=== PATIENT | female | born 1965 | race Caucasian/White ===

== ENCOUNTER 2016-12-09 11:40 | Inpatient (IN) | payer OTHER ==
--- NOTE | ~2016-12-09 | CT2 ---
[facility] A Service of [facility] & [facility] RADIOLOGY TEXT RESULTS PATIENT: DANIELA VILLA LOCATION: [facility] 242-01 : [birth year] UNIT #: [id number] AGE: [address]: Era Gardiner MD SEX: F ORDER DR: [id number] [place] [id number] [facility]. [place], [place] [address] [id number] E MR#: [id number] Acc #: [id number] NAME: DANIELA VILLA : 1965 SEX: F STUDY DATE/TIME: 12/09/2016 15:03 UNIT: [facility] ROOM: STUDY DESCRIPTION: CT Abd and Pelv W Cont Attending Physician: Ranulfo Dennison M.D. Ordering Physician: Ranulfo Dennison M.D. Primary Care Physician: Saadia Galarza M.D. MEDICAL IMAGING REPORT This report is preliminary unless electronic signature is present EXAM CT abdomen and pelvis with contrast INDICATIONS Elevated liver enzyme levels at physician's office today. Jaundice for the past month. PROCEDURE Contrast-enhanced CT of the abdomen and pelvis. This CT exam was performed with one or more of the following radiation dose reduction techniques: automatic exposure control, adjustment of mA and/or kV according to patient size, and iterative reconstruction. COMPARISON 12/01/2011 FINDINGS Abdomen with contrast: Band-like opacity in the left lower lobe is similar to the prior favored to represent scarring or chronic atelectasis. Somewhat heterogeneous enhancement pattern of the liver. No discrete mass is seen. The liver measures 17.4 cm in length and is not frankly cirrhotic. Gallbladder is moderately distended and there is mild to moderate pericholecystic fluid. No radiodense gallstones are seen. Common duct measures approximately 6 mm. There is no radiodense obstructing stone identified on this study. There is a nonspecific somewhat rounded very subtle slightly high attenuating 5 mm focus in the region of the ampulla. The pancreas is unremarkable. Spleen, kidneys, adrenal glands are unremarkable. The bowel loops are nondilated. No discrete pancreatic mass is seen. Pelvis with contrast: Previous hysterectomy. No pelvic mass or fluid. STS. [facility] A Service of [facility] & [facility] RADIOLOGY TEXT RESULTS PATIENT: DANIELA VILLA LOCATION: [facility] 242-01 : [birth year] UNIT #: [id number] AGE: [address]: Era Gardiner MD SEX: F ORDER DR: No aggressive appearing bone lesion. IMPRESSION 1. Heterogeneous enhancement pattern of the liver as well as some pericholecystic fluid. This could be seen in the setting of active hepatitis. 2. Common duct is upper limits of normal to minimally prominent for the patient's age. No definite obstructing radiodense stone is seen. 3. There is a subtle 5 mm round focus in the region of the ampulla. It is not clear whether this simply represents the ampulla or possibly a mass or, slightly high attenuating stone. This finding would be better characterized with MRCP or ERCP if deemed clinically appropriate. 4. Given the pericholecystic fluid, acute cholecystitis is not excluded but no discrete radiodense stones are seen in the gallbladder itself. Dictated by... Brent Akhtar M.D. THIS IS AN ELECTRONICALLY VERIFIED REPORT Brent Akhtar M.D. at 12/09/2016 10:23 PM EED/basia TD: 12/09/2016 17:48 JOB #: [id number] MEDICAL IMAGING REPORT Page 1 of 1 COPY
--- NOTE | ~2016-12-09 | MR145 ---
[facility] A Service of [facility] & [facility] RADIOLOGY TEXT RESULTS PATIENT: DANIELA VILLA LOCATION: [facility] 242-01 : [birth year] UNIT #: [id number] AGE: [address]: Ankit Jesus MD SEX: F ORDER DR: [id number] [facility] [address] [place], [place] [address] [id number] I MR#: [id number] Acc #: [id number] NAME: DANIELA VILLA : 1965 SEX: F STUDY DATE/TIME: 12/10/2016 20:18 UNIT: [facility] ROOM: 242 STUDY DESCRIPTION: MR MRCP WWo Contrast Attending Physician: Ankit Jesus M.D. Ordering Physician: Ankit Jesus M.D. Primary Care Physician: Saadia Galarza M.D. MRI CENTER REPORT This report is preliminary unless electronic signature is present. EXAM MRI abdomen and MRCP without and with IV gadolinium. HISTORY Elevated liver enzymes yesterday. Jaundice for 2 weeks. Periampullary mass or stone on CT abdomen yesterday. FINDINGS MRI abdomen was performed without and with IV gadolinium and MRCP was performed. There is a very small right pleural effusion and there is mild right perihepatic ascites. Moderate gallbladder distension and small amount of pericholecystic fluid. Mild extrahepatic biliary ductal dilatation with the common hepatic and common bile duct each measuring 9 mm in diameter. No intraductal filling defects. Normal caliber pancreatic duct. No correlate to the small hyperdensity at the level of the ampulla noted on CT yesterday. No hepatic mass. The spleen, pancreas, kidneys, and adrenal glands are normal. IMPRESSION 1. Small amount of perihepatic ascites and pericholecystic fluid and mild gallbladder distension. No gallstones. 2. Mild extrahepatic biliary ductal dilatation. 3. No intraductal filling defects were identified. No MRI correlate to the small hyperdensity near the ampulla noted on CT yesterday. 4. The pancreas is unremarkable. 5. No hepatic mass. Dictated by... Daniel Osorio M.D. STS[facility] A Service of [facility] & [facility] RADIOLOGY TEXT RESULTS PATIENT: DANIELA VILLA LOCATION: [place] [address]- : [birth year] UNIT #: [id number] AGE: [address]: Ankit Jesus MD SEX: F ORDER DR: THIS IS AN ELECTRONICALLY VERIFIED REPORT Daniel Osorio M.D. at 12/11/2016 11:46 AM FRANKIE/ervin TD: 12/11/2016 00:07 JOB #: [id number] MRI CENTER REPORT Page 1 of 1 COPY
--- NOTE | ~2016-12-09 | CO ---
Unit #: [id number] #: [id number] Patient: DANIELA SWAN [id number] [address] [address] [id number] I MR#: [id number] NAME: DANIELA SWAN ROOM: 242 Age: 51 Sex: F Admission Date: 12/09/2016 : 1965 Attending Physician: Ankit Jesus M.D. Primary Care Physician: Saadia Galarza M.D. Consultation Date: 12/09/2016 CONSULTATION REPORT REASON FOR CONSULTATION Acute hepatitis and liver failure. HISTORY OF PRESENT ILLNESS Ms. Swan is a 51-year-old white female. The patient is quite frail and she was brought in by her daughter because of deep jaundice and mental confusion, as well as feeling generally weak. The patient is deeply jaundiced and her admission bilirubin was 21.8. She apparently was asked to come to the emergency room by Dr. Galarza's office after her labs drawn a day earlier showed markedly abnormal liver function studies. The patient does have a history of drug use, including snorting. She states she has never used IV drugs in the past. Her latest symptoms seem to be marked anorexia, profound weight loss and deep jaundice. There is minimal abdominal pain as well. PAST MEDICAL HISTORY 1. History of hypothyroidism. 2. Anxiety and depression. 3. Seizure disorder. PAST SURGICAL HISTORY 1. Hysterectomy. 2. Appendectomy. SOCIAL HISTORY The patient smokes a pack of cigarettes daily. She does not drink alcohol. She does use marijuana and also snorts methamphetamine and other medications. ALLERGIES No known drug allergies. HOME MEDICATIONS 1. Tylenol. 2. Desyrel. 3. Seroquel. 4. Phenergan. 5. Meloxicam. 6. Meclizine. 7. Claritin. 8. Synthroid. 9. Keppra. 10. Neurontin. 11. Duloxetine. Unit #: [id number] #: [id number] Patient: DANIELA SWAN 12. Cyanocobalamin. 13. Albenza. She denies taking an overdose of Tylenol. REVIEW OF SYSTEMS Detailed review of organ systems is significant for profound weight loss and deep jaundice and marked anorexia. She has recently had a few falls. There is no history of fever, chills, rigors. No history of headache, seizure, chest pain, syncope. No history of cough, expectoration, hemoptysis. No history of dysuria, hematuria or pyuria. No history of focal seizures. There is a history of generalized seizures. No history of GI bleed. PHYSICAL EXAMINATION GENERAL: She appears awake and alert, a little bit lethargic. VITALS: Temperature 97.9, pulse 75 per minute and regular, respiratory rate 16, blood pressure 104/59. She weighs 125 pounds. Her baseline weight has been about the same last year and way back her weight was about 160 pounds a couple of years ago. She has lost about 40 pounds over 2 years. HEENT: She has deep jaundice, mild pallor, no lymphadenopathy or peripheral edema. LUNGS: Normal breath sounds. Good air entry. HEART: Normal heart sounds. No bruits auscultated. ABDOMEN: Soft and nontender. Liver and spleen are not palpable. Bowel sounds normal. EXTREMITIES: NEUROLOGIC: DIAGNOSTIC STUDIES LABORATORY: INR 1.4. Serum chemistry shows total bilirubin 21, most of which is direct. Peak AST and ALT are 1123 and 818. Alkaline phosphatase 258. Ammonia level on admission was 57. Potassium 3.0, BUN and creatinine normal. Glucose is also normal. CBC is completely normal. The patient's hepatitis profile is pending. (1) profile is also pending. The patient's hepatitis profile is pending. ASSESSMENT/PLAN Patient with acute hepatitis. The differential diagnosis includes autoimmune hepatitis, as well as hepatitis B and C. According to the patient's daughter, she had hepatitis serology checked in August earlier this year and that was normal. Although her CAT scan raises some questions, I am quite confident overall issue is acute hepatitis and there is no element of cholestasis from obstruction or jaundice. Will, therefore, obtain AI, (2) antibody, daily PT/INR as well as alpha fetoprotein. In addition, the patient's ammonia level is elevated and lactulose therapy is being instituted. The above plan was discussed with the patient's daughter and I explained to her the prognosis at the moment is guarded. Thank you for asking me to see this pleasant woman. I appreciate the consult. Dictated by... Unit #: [id number] #: [id number] Patient: DANIELA SWAN Ho Jean Baptiste M.D. AK/gz TD: 12/13/2016 08:20 JOB #: [id number] CC: Tessa Blanca M.D. Ashok Kapur, M.D. CONSULTATION REPORT Page 1 of 1 X Ho Jean Baptiste MD CONSULTATION REPORT
--- NOTE | ~2016-12-09 | HP ---
Unit #: [id number] #: [id number] Patient: DANIELA VILLA [id number] [facility]. [place], [place] [address] [id number] MR#: [id number] NAME: DANIELA VILLA ROOM: Age: 51 Sex: F Admission Date: 12/09/2016 : 1965 Attending Physician: Ranulfo Dennison M.D. Primary Care Physician: Saadia Galarza M.D. HISTORY AND PHYSICAL CHIEF COMPLAINT Abnormal labs. HISTORY OF PRESENT ILLNESS The patient is a 51-year-old female with past medical history of hypothyroidism, anxiety, depression, seizure disorder who presented to the emergency department for evaluation of the above. The patient states that she noticed her skin being yellow about a week ago. She saw her primary care physician yesterday. Labs were done. She was told to go to the emergency department due to abnormal labs today. The patient states that she has not had any fever. No cough. She has had nausea but no abdominal pain. No chest pain. She has noticed that her stools have been "orange" for the past three weeks. She is typically constipated. Her last bowel movement was yesterday. She denies any urinary symptoms. She has been generally weak. In the emergency department, laboratory is notable for AST and ALT of 1123 and 818 respectively, alkaline phosphatase was 258, total bilirubin 21.8 with 13.9 direct and 7.[address] of the abdomen and pelvis was done. It showed findings suggestive of active hepatitis and possible mass versus stone in the region of the ampulla. She is being admitted to [facility] for evaluation and further treatment. Also of note, ammonia level was 57. Potassium 3. She was given 45 mL of lactulose and 60 mEq of potassium in the emergency department. PAST MEDICAL HISTORY 1. Admission to [facility], January 15 through January 19, 2016, for seizure. She was discharged home on Keppra. 2. Seizure disorder, followed by Dr. Lemus. 3. Anxiety and depression. 4. Hypothyroidism. PAST SURGICAL HISTORY 1. Hysterectomy. 2. Appendectomy. 3. Colonoscopy, May 27, 2008, showed small internal hemorrhoids. SOCIAL HISTORY The patient smokes a pack of cigarettes daily. She reports marijuana use. FAMILY HISTORY Notable for there being no family history of liver disease. Unit #: [id number] #: [id number] Patient: DANIELA VILLA ALLERGIES No known allergies. HOME MEDICATIONS 1. Cyanocobalamin weekly. 2. Duloxetine 60 mg daily. 3. Neurontin 100 mg twice daily p.r.n. 800 mg t.i.d. 4. Keppra 500 mg twice daily. 5. Synthroid 100 mcg daily. 6. Claritin 10 mg daily. 7. Meclizine 25 mg q.8 hours p.r.n. 8. Meloxicam 15 mg daily. 9. Phenergan 25 mg q.6 hours p.r.n. 10. Seroquel 50 mg at bedtime. 11. Desyrel 150 mg at bedtime. 12. Tylenol No. 3 at bedtime p.r.n. 13. Vitamin D 50,000 units weekly. 14. Albenza is also listed but this is an old medication. REVIEW OF SYSTEMS A complete review of systems is negative except as indicated in the HPI. The patient's daughter is at bedside and states that the patient has been somewhat "disoriented" over the past couple of weeks. She has been increasingly generally weak. She has had a few falls. She has never been told she had hepatitis. She denies IV drug use. She denies heavy alcohol use. DIAGNOSTIC STUDIES LABORATORY: Ammonia level is 57. INR is 1.4. Blood alcohol level is less than 5. Urine tox screen is positive for amphetamine, marijuana, tricyclics. Comprehensive metabolic panel notable for potassium of 3. AST and ALT are 1123 and 818 respectively, alkaline phosphatase is 258, total bilirubin is 21.8 with 13.9 direct and 7.9 indirect, albumin is 2.6. Complete blood count is essentially normal. IMAGING: CT of the abdomen and pelvis shows findings suggestive of active hepatitis. There is also a 5 mm focus in the region of the ampulla concerning for possible mass versus stone. PHYSICAL EXAMINATION VITAL SIGNS: Temperature is 97.6, pulse 77, respirations 16, blood pressure 110/76, oxygen saturation is 98% on room air. GENERAL: The patient is a female who is awake and alert. HEENT: The head is atraumatic. Sclerae are icteric. Mucous membranes are moist. NECK: Supple. Trachea is midline. CARDIOVASCULAR: Regular rate and rhythm. LUNGS: Clear to auscultation bilaterally with no increased work of breathing. ABDOMEN: Soft, nontender with bowel sounds present in all four quadrants. EXTREMITIES: Nontender with no pedal edema. NEUROLOGIC: The patient is awake and alert. She is oriented x3. She follows commands. PSYCHIATRIC: Mood and affect are normal. The patient is cooperative. SKIN: The skin demonstrates jaundice. ASSESSMENT The patient is a 51-year-old female with: Unit #: [id number] #: [id number] Patient: DANIELA VILLA 1. Hepatic encephalopathy with an ammonia level of 57. The patient received 45 mL of lactulose in the emergency department. 2. Acute hepatitis: The patient states that she had a hepatitis panel about a year ago as part of a sexually transmitted disease evaluation. Also of note, the patient is on several medications that may cause hepatitis including duloxetine, Seroquel, trazodone. CT of abdomen and pelvis shows a 5 mm focus in the region of the ampulla concerning for mass versus stone. ERCP or MRCP is recommended. 3. Hypokalemia: The patient received 60 mEq of potassium in the emergency department. 4. Hypothyroidism. 5. Anxiety, depression. 6. Seizure disorder. 7. Tobacco abuse. 8. Coagulopathy with an INR of 1.4. PLAN 1. Admit to med/surg. 2. Healthy heart diet if passes bedside swallow. 3. NPO after midnight for possible procedure. 4. Lactulose 30 mL q.6 hours. 5. Neuro checks q.4 hours. 6. Bedrest. 7. Fall precautions. 8. Hepatitis panel. 9. Consult Dr. Jean Baptiste regarding acute hepatitis and need for ERCP. 10. Check magnesium level. 11. Potassium/magnesium protocol. 12. TSH. 13. Repeat labs in the morning including INR, magnesium, and ammonia levels. 14. P.r.n. Liliana. 15. SCDs for deep venous thrombosis prophylaxis. Dictated by Era Gardiner M.D. Shannon TD: 12/09/2016 17:33 JOB #: [id number] HISTORY AND PHYSICAL Page 1 of 1 X Era Gardiner MD HISTORY AND PHYSICAL
[~2016-12-09 11:40] MED LIST: ALPRAZOLAM PO; AMOXIL500 MG PO; ATARAX; ATARAX PO; CELEXA; CELEXA PO; DULOXETINE HCL60 MG PO; FLEXERIL10 M1 PO; FLEXERIL10 MG PO; KEPPRA500 M1 PO; KLONOPIN; LEXAPRO PO; NEURONTIN800 MG PO; NICOTINE TRANSD21 MG EXT; NORCO1 TAB 10/3 PO; PERCOCET 5-3251 TAB PO; PHENERGAN25 MG PO; SEROQUEL PO; SYNTHROID PO; SYNTHROID0.05 MG; SYNTHROID0.1 MG PO; TRAZODONE HCL300 MG PO; TYLENOL325 M1 PO; VOLTAREN75 MG PO; XANAX2 MG PO; ZOCOR PO; ZOVIRAX15 GM TOP; [UNRECOGNIZED DRUG - OTHER]
[2016-12-09] MEDS ORDERED: ALBENZA200 MG PO (13:33)
[2016-12-09] MEDS ORDERED: CYANOCOBAL1000 MCG/M IM (13:34)
[2016-12-09] MEDS ORDERED: DULOXETINE HCL60 M1 PO (13:35)
[2016-12-09] MEDS ORDERED: NEURONTIN100 MG PO (13:35)
[2016-12-09] MEDS ORDERED: NEURONTIN800 MG PO (13:36)
[2016-12-09] MEDS ORDERED: CLARITIN10 M3 PO (13:36)
[2016-12-09] MEDS ORDERED: KEPPRA500 M2 PO (13:36)
[2016-12-09] MEDS ORDERED: SYNTHROID PO (13:36)
[2016-12-09] MEDS ORDERED: ANTIVERT PO (13:37)
[2016-12-09] MEDS ORDERED: SEROQUEL PO (13:38)
[2016-12-09] MEDS ORDERED: MOBIC PO (13:38)
[2016-12-09] MEDS ORDERED: PHENERGAN PO (13:38)
[2016-12-09] MEDS ORDERED: TYLENOL #3 PO (13:39)
[2016-12-09] MEDS ORDERED: DESYREL150 M1 PO (13:39)
[2016-12-09] MEDS ORDERED: VITAMIN D250000 UNIT PO (13:40)
[2016-12-09 13:43] LABS: INR 1.4; PARTIAL THROMBOPLASTIN TIME 35.6 SECONDS (23.5-31.3); PROTHROMBIN TIME (PATIENT) 14.6 SECONDS (9.6-11.5)
[2016-12-09 14:16] LABS: AMPHETAMINE POS (NEG); BARBITURATES NEG (NEG); BENZODIAZEPINES NEG (NEG); COCAINE NEG (NEG); MARIJUANA POS (NEG); OPIATES NEG (NEG); TRICYCLIC ANTIDEPRESSANTS POS (NEG); U METHADONE NEG (NEG)
[2016-12-09 14:24] LABS: ALBUMIN SERUM 2.6 g/dL (3.5-5.0); BILIRUBIN,TOTAL 21.8 mg/dL (0.2-2.0); BUN/CREATININE RATIO 18.33; CALCIUM SERUM 8.6 mg/dL (8.4-10.2); CREATININE SERUM 0.6 mg/dL (0.6-1.4); GLOM FILT RATE Estimated 105.5 mL/min (>60); PROTEIN TOTAL SERUM 6.3 g/dL (6.0-8.3)
[2016-12-09 14:26] LABS: BILIRUBIN, DIRECT 13.9 mg/dL (0.0-0.2); BILIRUBIN,INDIRECT 7.9 mg/dL (0.0-0.9)
[2016-12-09 14:34] LABS: BASOPHIL# 0.1 X10e3 (0-0.3); BASOPHIL% 1.9 % (0-2.5); EOSINOPHIL# 0.3 X10e3 (0-0.7); EOSINOPHIL% 5.7 % (0.0-7.0); HEMATOCRIT 43.3 % (35.0-45.0); HEMOGLOBIN 14.3 gm/dL (12.0-16.0); LYMPHOCYTE# 1.7 X10e3 (1.0-3.5); LYMPHOCYTE% 28.3 % (17.0-45.0); MEAN CELL VOLUME 91.6 FL (83-96); MEAN CORPUSCULAR HEMOGLOBIN 30.2 PG (28-34); MEAN PLATELET VOLUME 8.9 FL (6.5-11.5); MONOCYTE# 0.7 X10e3 (0-1.0); MONOCYTE% 12.8 % (3.0-12.0); NEUTROPHIL% 51.3 % (40-75); PLATELET COUNT 201 X10e3 (140-420); RED BLOOD COUNT 4.73 X10e (3.90-5.30); RED CELL DISTRIBUTION WIDTH 20.6 % (11.0-15.5); WHITE BLOOD COUNT 5.9 X10e3 (4.0-10.5)
[2016-12-09 15:00] LABS: DIFF IND NO
[2016-12-10 06:24] LABS: INR 1.3; PROTHROMBIN TIME (PATIENT) 14.3 SECONDS (9.6-11.5)
[2016-12-10 06:28] LABS: HEMATOCRIT 37.8 % (35.0-45.0); HEMOGLOBIN 12.7 gm/dL (12.0-16.0); MEAN CELL VOLUME 91.2 FL (83-96); MEAN CORPUSCULAR HEMOGLOBIN 30.6 PG (28-34); MEAN CORPUSCULAR HGB CONC 33.6 g/dL (30-36); MEAN PLATELET VOLUME 8.8 FL (6.5-11.5); RED BLOOD COUNT 4.14 X10e (3.90-5.30); RED CELL DISTRIBUTION WIDTH 20.9 % (11.0-15.5); WHITE BLOOD COUNT 6.6 X10e3 (4.0-10.5)
[2016-12-10 07:24] LABS: ALBUMIN SERUM 2.4 g/dL (3.5-5.0); BUN/CREATININE RATIO 18.33; CALCIUM SERUM 8.3 mg/dL (8.4-10.2); CREATININE SERUM 0.6 mg/dL (0.6-1.4); GLOM FILT RATE Estimated 105.5 mL/min (>60); MAGNESIUM 1.9 mg/dL (1.6-3.0); PROTEIN TOTAL SERUM 5.8 g/dL (6.0-8.3)
[2016-12-10 07:26] LABS: BILIRUBIN,TOTAL 18.7 mg/dL (0.2-2.0)
[2016-12-11 06:25] LABS: HEMATOCRIT 40.2 % (35.0-45.0); HEMOGLOBIN 13.4 gm/dL (12.0-16.0); MEAN CELL VOLUME 91.4 FL (83-96); MEAN CORPUSCULAR HEMOGLOBIN 30.4 PG (28-34); MEAN CORPUSCULAR HGB CONC 33.3 g/dL (30-36); MEAN PLATELET VOLUME 8.8 FL (6.5-11.5); RED BLOOD COUNT 4.4 X10e (3.90-5.30); WHITE BLOOD COUNT 6.4 X10e3 (4.0-10.5)
[2016-12-11 07:05] LABS: ALBUMIN SERUM 2.4 g/dL (3.5-5.0); BILIRUBIN,TOTAL 19.9 mg/dL (0.2-2.0); BUN/CREATININE RATIO 14.28; CALCIUM SERUM 8.5 mg/dL (8.4-10.2); CREATININE SERUM 0.7 mg/dL (0.6-1.4); GLOM FILT RATE Estimated 100.3 mL/min (>60); MAGNESIUM 1.8 mg/dL (1.6-3.0); POTASSIUM 3.7 mmol/L (3.5-5.1); PROTEIN TOTAL SERUM 5.9 g/dL (6.0-8.3)
[2016-12-11] MEDS ORDERED: LACTULOSE10 GM/15 M PO (14:53)
[2016-12-13 16:12] LABS: HA AB IGM (HEPPAN) Nonreactive (()); HB CORE AB IGM (HEPPAN) Reactive (Nonreactive); HB S AG (HEPPAN) Reactive (Nonreactive); HEP C AB (HEPPAN) Nonreactive (Nonreactive); HEP C AB SIGNAL TO CUTOFF 0.03 ratio (<1.00)
[2016-12-15 14:07] LABS: ANA SCREEN Negative (Negative)
[2016-12-21] MEDS ORDERED: CYMBALTA (09:27)
[2016-12-21] MEDS ORDERED: DESYREL150 M1 PO (09:27)
== END 2016-12-11 15:08 | disposition home or self-care (01) | DRG 441 ==
LOC: CED 11:40 → CEDOF 16:55 → CED 17:08 → CEDOF 17:08 → C2A 17:08 → CEDOF 18:22 → C2A 12-10 07:14
PROVIDERS: Emergency Medicine; Family Medicine; Internal Medicine Gastroenterology
DX: K72.90 Hepatic failure, unspecified without coma (principal); K83.1 Obstruction of bile duct; D68.9 Coagulation defect, unspecified; E87.6 Hypokalemia; E03.9 Hypothyroidism, unspecified; F41.9 Anxiety disorder, unspecified; F32.9 Major depressive disorder, single episode, unspecified; G40.909 Epilepsy, unspecified, not intractable, without status epilepticus; Z90.710 Acquired absence of both cervix and uterus; Z90.49 Acquired absence of other specified parts of digestive tract; F17.210 Nicotine dependence, cigarettes, uncomplicated; Z71.6 Tobacco abuse counseling; F15.10 Other stimulant abuse, uncomplicated
CPT/HCPCS: 36415; 74177; 74183; 80048; 80053; 80074; 80076; 80307; 82105; 82140; 83516; 83735; 84439; 84443; 85025; 85027; 85610; 85730; 86038; 86039; 99285; A9577; G0480; J3475; Q9967

== ENCOUNTER → 2016-12-21 | Outpatient (CLI) | payer OTHER ==
[~2016-12-21] MED LIST changes: +ALBENZA200 MG PO; +ANTIVERT PO; +CLARITIN10 M3 PO; +CYANOCOBAL1000 MCG/M IM; +CYMBALTA; +DESYREL150 M1 PO; +DULOXETINE HCL60 M1 PO; +KEPPRA500 M2 PO; +LACTULOSE10 GM/15 M PO; +MOBIC PO; +NEURONTIN100 MG PO; +PHENERGAN PO; +TYLENOL #3 PO; +VITAMIN D250000 UNIT PO
--- NOTE | ~2016-12-21 | CT134 ---
[facility] A Service of [facility] & [facility] RADIOLOGY TEXT RESULTS PATIENT: DANIELA VILLA LOCATION: [facility]IV[facility] : [birth year] UNIT #: [id number] AGE: [address]: Ho Jean Baptiste MD SEX: F ORDER DR: [id number] [facility] [address] [place], [place] [address] [id number] O MR#: [id number] Acc #: [id number] NAME: DANIELA VILLA : 1965 SEX: F STUDY DATE/TIME: 12/21/2016 10:53 [facility]: STUDY DESCRIPTION: CT Guide Attending Physician: Ho Jean Baptiste M.D. Referring Physician: Ho Jean Baptiste M.D. Ordering Physician: Ho Jean Baptiste M.D. Primary Care Physician: Saadia Galarza M.D. MEDICAL IMAGING REPORT This report is preliminary unless electronic signature is present EXAM CT-guided liver biopsy. INDICATIONS Abnormal elevated liver function tests and jaundice. PROCEDURE The risks, benefits, and alternatives to the procedure were explained to the patient, and signed, informed consent was obtained. She was placed supine on the CT scanner gantry. Preliminary CT scan was performed through the region of interest. An appropriate site overlying the patient's right hepatic lobe was selected. Overlying skin was marked. Patient was prepped and draped in usual sterile fashion. Time-out was performed as per protocol. Skin and subcutaneous tissues were anesthetized with buffered lidocaine. Anesthesia needle was left in place. Repeat CT scan confirmed appropriate trajectory of the needle and I subsequently exchanged for a 17-gauge coaxial needle, which was advanced in the right hepatic lobe. Final CT scan confirmed appropriate position of the needle. At this point, two 3 cm core samples were obtained using an 18-gauge BioPince biopsy gun. Needle was then removed and manual pressure was applied until hemostasis was obtained. Patient tolerated the procedure well and there were no complications. Moderate sedation was provided to the patient. I monitored the IVR nurse who monitored the patient's vital signs for a total of 9 minutes face to face time. This CT exam was performed with one or more of the following radiation dose reduction techniques: automatic exposure control, adjustment of mA and/or kV according to patient size, and iterative reconstruction. IMPRESSION Technically successful CT-guided liver biopsy as noted above. Dictated by... [facility] A Service of [facility] RADIOLOGY TEXT RESULTS PATIENT: DANIELA VILLA LOCATION: [facility] #: [id number] : [birth year] UNIT #: [id number] AGE: [address]: Ho Jean Baptiste MD SEX: F ORDER DR: Rebecca Botello M.D. THIS IS AN ELECTRONICALLY VERIFIED REPORT Rebecca Botello M.D. at 12/24/2016 3:25 PM AFF/pc TD: 12/24/2016 08:14 JOB #: [id number] MEDICAL IMAGING REPORT Page 1 of 1 COPY
--- NOTE | ~2016-12-21 | XA60 ---
[facility] A Service of [facility] & [facility] RADIOLOGY TEXT RESULTS PATIENT: DANIELA VILLA LOCATION: [facility] : [birth year] UNIT #: [id number] AGE: [address]: Ho Jean Baptiste MD SEX: F ORDER DR: [id number] [facility] [address] [place], [place] [address] [id number] O MR#: [id number] #: [id number] NAME: DANIELA VILLA : 1965 SEX: F STUDY DATE/TIME: 12/21/2016 10:53 UNIT: [facility] ROOM: STUDY DESCRIPTION: XA BX Perc Liver Attending Physician: Ho Jean Baptiste M.D. Referring Physician: Ho Jean Baptiste M.D. Ordering Physician: Ho Jean Baptiste M.D. Primary Care Physician: Saadia Galarza M.D. MEDICAL IMAGING REPORT This report is preliminary unless electronic signature is present EXAM Liver biopsy. INDICATIONS Abnormal elevated liver function tests and jaundice. FINDINGS Please see CT-guided liver biopsy for results. Dictated by... Rebecca Botello M.D. THIS IS AN ELECTRONICALLY VERIFIED REPORT Rebecca Botello M.D. at 12/24/2016 3:27 PM AFF/pc TD: 12/24/2016 08:19 JOB #: [id number] MEDICAL IMAGING REPORT Page 1 of 1 COPY
[2016-12-21 08:39] LABS: BASOPHIL% 0.2 % (0-2.5); EOSINOPHIL# 0.4 X10e3 (0-0.7); HEMATOCRIT 41.2 % (35.0-45.0); HEMOGLOBIN 13.6 gm/dL (12.0-16.0); LYMPHOCYTE# 2.3 X10e3 (1.0-3.5); LYMPHOCYTE% 30.8 % (17.0-45.0); MEAN CORPUSCULAR HEMOGLOBIN 31.3 PG (28-34); MEAN PLATELET VOLUME 8.6 FL (6.5-11.5); MONOCYTE# 0.6 X10e3 (0-1.0); MONOCYTE% 7.6 % (3.0-12.0); NEUTROPHIL# 4.2 X10e3 (1.5-7.1); NEUTROPHIL% 56.4 % (40-75); PLATELET COUNT 284 X10e3 (140-420); RED BLOOD COUNT 4.33 X10e (3.90-5.30); RED CELL DISTRIBUTION WIDTH 21.1 % (11.0-15.5); WHITE BLOOD COUNT 7.4 X10e3 (4.0-10.5)
[2016-12-21 08:42] LABS: DIFF IND NO
[2016-12-21 08:53] LABS: PARTIAL THROMBOPLASTIN TIME 30.2 SECONDS (23.5-31.3); PROTHROMBIN TIME (PATIENT) 11.1 SECONDS (10.0-11.7)
[2016-12-21 09:29] LABS: ALBUMIN SERUM 3.4 g/dL (3.5-5.0); BILIRUBIN,TOTAL 11.3 mg/dL (0.2-2.0); BUN/CREATININE RATIO 14.16; CALCIUM SERUM 9.4 mg/dL (8.4-10.2); CREATININE SERUM 1.2 mg/dL (0.6-1.4); GLOM FILT RATE Estimated 52.3 mL/min (>60); POTASSIUM 3.1 mmol/L (3.5-5.1); PROTEIN TOTAL SERUM 7.7 g/dL (6.0-8.3)
== END | disposition home or self-care (01) ==
LOC: CIVR 06:56
PROVIDERS: Internal Medicine Gastroenterology
DX: R94.5 Abnormal results of liver function studies (principal); R17 Unspecified jaundice
CPT/HCPCS: 36415; 77012; 80053; 85025; 85610; 85730; 87350; 87516; 88307; 88331; J2250; J3010